=== PATIENT | female | born 2000 | race Caucasian/White ===

== ENCOUNTER 2021-04-26 00:28 | Emergency (ER) | payer OTHER ==
[2021-04-26 00:38] VITALS: BP 113/67; PULSE 75; TEMP 98.2; BMI 21.9
[2021-04-26] MEDS ORDERED: ACETAMINOPHEN 500 MG TABLET (FP) PO ONE (00:46)
[2021-04-26] MEDS ORDERED: ACETAMINOPHEN 500 MG TABLET (FP) ONE (00:47)
== END 2021-04-26 01:00 | disposition home or self-care (01) ==
LOC: FER 00:28
DX: R51.9 Headache, unspecified (principal)
CPT/HCPCS: 99283-25